=== PATIENT | female | born 1995 | race Caucasian/White ===

== ENCOUNTER → 2021-03-06 | Outpatient (CLI) | payer OTHER | END | disposition home or self-care (01) | LOC: SONOGRAMA 08:40 | PROVIDERS: ATTEND Radiology Diagnostic Radiology | DX: N64.4 Mastodynia (principal) ==

== ENCOUNTER 2021-03-14 14:07 | Outpatient (CLI) | payer OTHER | END 2021-03-14 14:31 | disposition home or self-care (01) | LOC: SONOGRAMA 14:07 | PROVIDERS: ATTEND Surgery | DX: D24.1 Benign neoplasm of right breast (principal); N60.11 Diffuse cystic mastopathy of right breast; N60.12 Diffuse cystic mastopathy of left breast ==